=== PATIENT | female | born 1990 | race Caucasian/White ===

== ENCOUNTER 2017-03-22 18:18 | Inpatient (IN) | payer OTHER ==
[~2017-03-22] VITALS: Ht 162.6 cm; Wt 69.8 kg
--- NOTE | 2017-03-22 20:34 | NUR ---
DR HUNTER BEDSIDE IN ED BED T1 FOR MSE.
--- NOTE | 2017-03-22 20:54 | NUR ---
PT IN THE ED WITH COMPLAINT OF EPIGASTRIC PAIN AND VOMITING SINCE TUESDAY. PT RATES CURRENT PAIN 10/10. PT AXOX4 WITH EVEN AND UNLABORED BREATHING. SKIN WDI.
[2017-03-22 21:04] LABS: microscopic required? YES; urine erythrocyte TRACE (NEGATIVE)
[2017-03-22 21:05] LABS: BASOPHIL % 0.1 % (0-2); PLATELET COUNT 313 x10^3mcL (130-400)
[2017-03-22 21:06] LABS: RED CELL DISTRIBUTION WIDTH 15.2 % (11.5-14.5)
[2017-03-22 21:13] LABS: CALCIUM 8.8 mg/dL (8.5-10.1); CARBON DIOXIDE 26.3 mmol/L (21-32); CHLORIDE SERUM 101 mmol/L (98-107); CREATININE SERUM 0.8 mg/dL (0.6-1.0); GFR1 > 60 mL/min; GLUCOSE SERUM 95 mg/dL (74-106); POTASSIUM SERUM 3.4 mmol/L (3.5-5.1); SODIUM SERUM 138 mmol/L (136-145)
--- NOTE | 2017-03-22 21:13 | NUR ---
US AT BEDSIDE IN ED ROOM T1.
[2017-03-22 21:17] LABS: ALBUMIN 4.3 g/dL (3.4-5.0); ALKALINE PHOSPHATASE 84 U/L (46-116); ALT/SGPT 19 U/L (14-59); AST/SGOT 14 U/L (15-37); BILIRUBIN TOTAL 0.3 mg/dL (0.20-1.00); LIPASE 111 IU/L (73-393)
[2017-03-22 21:23] LABS: TOTAL PROTEIN, SERUM 8.6 g/dL (6.4-8.2)
--- NOTE | 2017-03-22 22:20 | NUR ---
PT MEDICATED WITH IM TORADOL.
--- NOTE | 2017-03-22 23:25 | NUR ---
REPORT CALLED TO RANULFO OLSEN FOR ONGOING CARE IN [facility].
--- NOTE | 2017-03-22 23:33 | NUR ---
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 AAOX4. NO SOB NOTED. NSR ON THE MONITOR. C/O 3/10 ACHING EPIGASTRIC PAIN, DENIES NAUSEA/VOMITING AT THIS TIME. LAST BM WAS ABOUT 3 DAYS AGO. SIDE RAILS UPX2. CALL LIGHT ON REACH. ENDORSED TO PRIMARY NURSE RAÚL FOR CONTINUITY OF CARE.
[2017-03-22 23:43] VITALS: BP 140/94
[2017-03-22 23:45] VITALS: Ht 162.6 cm; Wt 69.8 kg
[2017-03-23 01:49] LABS: IRON 15 ug/dL (50-170); TOTAL IRON BINDING CAPACITY 463 ug/dL (250-450)
[2017-03-23 01:53] LABS: FREE T4 1.2 ng/dL (0.76-1.46); FREE THYROXINE INDEX 3.5 ug/dL (1.4-4.5); RED BLOOD CELLS 4.75 M/mm3 (4.10-5.10); T4(THYROXINE) 10.6 ug/dL (4.7-13.3)
[2017-03-23 01:58] LABS: PHOSPHOROUS 3.8 mg/dL (2.5-4.9)
[2017-03-23 02:50] LABS: T3 TOTAL 1.51 ng/mL
[2017-03-23 04:31] LABS: AMPHETAMINE QUAL UR NONE DETECTED (NEG <=1000)
--- NOTE | 2017-03-23 04:51 | NUR ---
PT SLEPT WELL SINCE ADMISSION.DENIES ABDOMINAL PAIN.NO N/V NOTED.ALL NEEDS MET.WILL CONTINUE TO MONITOR.
[2017-03-23 06:30] LABS: BASOPHIL % 0.3 % (0-2); PLATELET COUNT 254 x10^3mcL (130-400)
[2017-03-23 06:42] VITALS: BP 114/68
[2017-03-23 07:00] LABS: RED CELL DISTRIBUTION WIDTH 14.7 % (11.5-14.5)
[2017-03-23 07:04] LABS: CALCIUM 7.9 mg/dL (8.5-10.1); CARBON DIOXIDE 26.2 mmol/L (21-32); CHLORIDE SERUM 105 mmol/L (98-107); CREATININE SERUM 0.7 mg/dL (0.6-1.0); GFR1 > 60 mL/min; GLUCOSE SERUM 83 mg/dL (74-106); HDL CHOLESTEROL 52 mg/dL (40-60); POTASSIUM SERUM 3.3 mmol/L (3.5-5.1); SODIUM SERUM 139 mmol/L (136-145); TRIGLYCERIDES 32 mg/dL (<150)
[2017-03-23 07:06] LABS: CHOLESTEROL 112 mg/dL (<200); CHOLESTEROL/HDL RATIO 2.2
--- NOTE | 2017-03-23 07:30 | NUR ---
RECEIVED PATIENT RESTING INBED COMFORTABLY, A/O X4, CLEAR SPEECH, NO NEURO DEFICITS NOTED. TELE # [address], DENIES CHEST PAIN. BREATHING EVEN UNLABBORED ON RA, DENIES SOB. ABD SOFT/ROUND, BS ACTIVE X4, DENIES N/V OR ABD PAIN. VOIDS FREELY WITH BRP. NPO STATUS MAINTAINED. SKIN IS WARM CDI WITH IV TO RH INTACT INFUSING NS AT 100 ML/HR FREE FROM REDNESS AND INFILTRATION. PATIENT CALM WITH CARE. INSTRUCTED TO CALL FOR ASSISTANCE IF NEEDED. CALL LIGHT WITHIN REACH, BED IN LOW POSITION. WILL MONITOR.
--- NOTE | 2017-03-23 08:15 | NUR ---
DR. BANERJEE AT BEDSIDE TO SPEAK WITH AND ASSESS PATIENT. PATIENT MADE AWARE SHE HAS GALLSTONES AND WILL REQUIRE SURGERY TO REMOVE GALLBLADDER, AGREED WITH PLAN OF CARE. CONSENT OBTAINED AND SIGNED FOR LAPAROSCOPIC CHOLECYSTECTOMY POSSIBLE OPEN. ALL QUESTIONS AND CONCERNS ADDRESSED. WILL MONITOR.
[2017-03-23 10:00] VITALS: BP 134/80
--- NOTE | 2017-03-23 10:15 | NUR ---
DR. CASTELLANOS (DO-RESIDENT) MADE AWARE OF K 3.3. NO NEW ORDERS RECEIVED. WILL MONITOR.
--- NOTE | 2017-03-23 11:45 | NUR ---
PATIENT TAKEN DOWN TO OR FOR PROCEDURE. SCREW MACHINE ADJUSTER AUTOMATIC AWARE.
--- NOTE | 2017-03-23 14:20 | NUR ---
RECEIVED PATIENT BACK FROM OR S/P LAP ESSIE WITH INCISION X4 TO ABD WITH DANILO COVERED WITH BANDAID. PATIENT A/O X4, DROWSY BUT ABLE TO MAKE NEEDS KNOWN AND FOLLOW COMMANDS. PATIENT ABLE TO TRANSFER SELF FROM GURNEY TO BED. TELE # 25 APPLIED. IVF RESUMED. VSS: BP 108/68, MAP 83, HR 61, RR 17, O2 SAT 100% ON RA, TEMP 98.2. PATIENT DENIES ANY PAIN OR NAUSEA AT THIS TIME. ALL NEEDS ATTENDED TO. COUNSELING SERVICES DIRECTOR MADE AWARE PATIENT IS BACK FROM OR. SAFETY PRECAUTIONS MAINTAINED. WILL MONITOR.
[2017-03-23 18:40] VITALS: BP 125/69
--- NOTE | 2017-03-23 18:46 | NUR ---
PATIENT SITTING UP IN BED NO DISTRESS NOTED, FAMILY AT BEDSIDE. PATIENT TOLERATED DINNER WELL, DENIES ANY N/V OR ABD PAIN. DENIES PASSING GAS, OR BURPING, NO BM YET. INCISION TO ABD X4 WITH BANDAID CDI NO ACTIVE BLEEDING NOTED. ENCOUARGED PATIENT TO GET UP OUT OF BED AND AMBULATE AND ENCOUARGED USE OF I.S THAT IS AT BEDSIDE. IV TO RH INTACT INFUSING IVF WELL. ALL NEEDS ATTENDED TO DURING SHIFT. SAFETY PRECAUTIONS IN PLACE. WILL MONITOR.
--- NOTE | 2017-03-23 19:34 | NUR ---
RECEIVED PATIENT IN BED AWAKE, ALERT AND ORIENTED, FAMILY MEMBERS AT BEDSIDE. DENIES POST OPERATIVE PAIN AT THIS TIME. ABDOMEN ROUND AND NON TENDER WITH HYPOACTIVE BS. INCISION X4 TO ABDOMEN WITH BANDAID, BLOOD TRACED NOTED IN SMALL AMOUNT. NO ACTIVE BLEEDING NOTED TO OPERATIVE SITE. TELE# 25 NSR ON MONITOR. SCD TO BLE IN PLACE. IV TO RH INTACT AND INFUSING WELL. WILL CONTINUE TO MONITOR. CALL LIGHT WITHIN REACH.
[2017-03-23 20:45] VITALS: BP 105/48
--- NOTE | 2017-03-23 20:50 | NUR ---
C/O HEADACHE MEDICATED WITH TYLENOL 650MG PO PRESCRIBED. WILL CONTINUE TO MONITOR.
--- NOTE | 2017-03-24 03:01 | NUR ---
SLEEPING THIS TIME BREATHING EASY AND NONLABOR. WILL CONTINUE TO MONITOR.
--- NOTE | 2017-03-24 05:23 | NUR ---
SLEPT FAIRLY C/O POST OP PAIN X1 THE ENTIRE SHIFT AND MEDICATED PRESCRIBED. ALL NEEDS ATTENDED.
[2017-03-24 06:00] VITALS: BP 104/59
[2017-03-24 06:15] LABS: BASOPHIL % 0.1 % (0-2); PLATELET COUNT 244 x10^3mcL (130-400)
[2017-03-24 06:28] LABS: CALCIUM 8.1 mg/dL (8.5-10.1); CARBON DIOXIDE 24.3 mmol/L (21-32); CHLORIDE SERUM 107 mmol/L (98-107); CREATININE SERUM 0.7 mg/dL (0.6-1.0); GFR1 > 60 mL/min; GLUCOSE SERUM 85 mg/dL (74-106); SODIUM SERUM 140 mmol/L (136-145)
[2017-03-24 06:30] LABS: RED CELL DISTRIBUTION WIDTH 14.7 % (11.5-14.5)
--- NOTE | 2017-03-24 07:30 | NUR ---
RECEIVED PATIENT RESTING IN BED COMFORTABLY, EASILY AROUSABLE TO VERBAL STIMULI, A/O X4, CLEAR SPEECH, NO NEURO DEFICITS NOTED. TELE # [address], DENIES CHEST PAIN. BREATHING EVEN UNLABBORED ON RA, DENIES SOB, NO DISTRESS NOTED. PATIENT IS S/P LAP ESSIE 03/23/17, WITH INCISION X4 TO ABD COVERED WITH BANDAID CDI. PATIENT DENIES ANY N/V OR ABD PAIN. PATIENT DENIES PASSING GAS OR HAVING A BM YET. IV TO RH INTACT INFUSING NS AT 100 ML/HR FREE FROM REDNESS AND INFILTRATION. PATIENT CALM WITH CARE. INSTRUCTED TO CALL FOR ASSISTANCE IF NEEDED. CALL LIGHT WITHIN REACH, BED IN LOW POSITION. WILL CONTINUE TO MONITOR AND MAINTAIN SAFETY.
--- NOTE | 2017-03-24 09:19 | NUR ---
ROUNDS MADE- DR. SALDAÑA, RESIDENT TEAM, CHARGE NURSE AND PRIMARY NURSE AT BEDSIDE. POC REVIEWED WITH PATIENT- PATIENT SITTING UP IN BED USING I.S, TOLERATED BREAKFAST WELL. PATIENT STABLE FOR DISCHARGE HOME TODAY AND WILL BE GIVEN A PRESCRIPTION FOR PAIN MEDICATION AND STOOL SOFTENER. ALL QUESTIONS AND CONCERNS ADDRESSED. WILL MONITOR.
[2017-03-24 10:18] VITALS: BP 113/63
--- NOTE | 2017-03-24 10:34 | NUR ---
PATIENT SEEN AMBULATING IN HALLWAY, GAIT SLOW AND STEADY. PATIENT STATES SHE IS PASSING GAS, BUT NO BM YET. PATIENT DENIES ANY PAIN, NO DISTRESS NOTED. WILL CONTINUE TO MONITOR.
[2017-03-24] MEDS ORDERED: APAP/HYDROCODON1 T13 PO (11:46)
[2017-03-24] MEDS ORDERED: COL100 PO (11:46)
[2017-03-24] MEDS ORDERED: PRI20 PO (11:47)
[2017-03-24 11:50] VITALS: BP 113/63
--- NOTE | 2017-03-24 12:20 | NUR ---
PATIENT STABLE FOR DISCHARGE TODAY PER MD ORDER. DISCHARGE INSTRUCTIONS, PRESCRIPTION, BELONGINGS LIST AND EDUCATION GIVEN TO PATIENT. PATIENT VERBALIZED UNDERSTANDING TO FOLLOW UP WITH PCP ON 03/29/[address] BANERJEE ON 04/01/17, ALL QUESTIONS AND CONCERNS ADDRESSED. INCISION X4 TO ABDOMEN BEKAH WITH DANILO, CDI NO REDNESS OR DRAINAGE NOTED. PATIENT STATED HER SISTER IS ON HER WAY TO TAKE PATIENT HOME. INFORMED PATIENT TO NOTIFY STAFF WHEN SISTER IS AT BEDSIDE. SAFETY PRECAUTIONS MAINTAINED. WILL MONITOR.
--- NOTE | 2017-03-24 13:09 | NUR ---
PATIENT IN STABLE CONDITION NO DISTRESS NOTED. FAMILY AT BEDSIDE. IV TO RH REMOVED CATH INTACT. ID BANDS REMOVED, TELE MONITOR REMOVED. PATIENT ASSISTED DOWN TO LOBBY VIA WHEELCHAIR ACCOMPANIED BY NURSE AID AND FAMILY. ALL PERSONAL BELONGINGS SENT HOME WITH PATIENT.
== END 2017-03-24 13:07 | disposition home or self-care (01) | DRG 263 ==
LOC: ED 18:18 → DU 23:10
PROVIDERS: Emergency Medicine; ADMIT Family Medicine
PROC: 0FT44ZZ Resection of Gallbladder, Percutaneous Endoscopic Approach (ICD-10-PCS; principal; 2017-03-22)
DX: K80.20 Calculus of gallbladder without cholecystitis without obstruction (principal); N17.0 Acute kidney failure with tubular necrosis; E87.6 Hypokalemia; I10 Essential (primary) hypertension; R31.9 Hematuria, unspecified; D50.9 Iron deficiency anemia, unspecified; K76.0 Fatty (change of) liver, not elsewhere classified; Z68.26 Body mass index [BMI] 26.0-26.9, adult
CPT/HCPCS: 83880; 84439; 94150; J0330; J0690; J1885; J2175; J2250; J2270; J2405; J2704; J2710; J2765; J3010; J3490; J7030; J7120; Q0092; Q0162

== ENCOUNTER 2018-06-16 22:53 | Inpatient (IN) | payer OTHER ==
[~2018-06-16] VITALS: Ht 160 cm; Wt 65.8 kg
[~2018-06-16 22:53] MED LIST: APAP/HYDROCODON1 T13 PO; COL100 PO; PRI20 PO
[2018-06-16 23:09] VITALS: Ht 160 cm; Wt 65.8 kg
[2018-06-17 01:37] LABS: CALCIUM 8.9 mg/dL (8.5-10.1); CARBON DIOXIDE 27.9 mmol/L (21-32); CHLORIDE SERUM 101 mmol/L (98-107); CREATININE SERUM 0.9 mg/dL (0.6-1.0); GFR1 > 60 mL/min; GLUCOSE SERUM 87 mg/dL (74-106); POTASSIUM SERUM 3.1 mmol/L (3.5-5.1); SODIUM SERUM 138 mmol/L (136-145)
[2018-06-17 01:39] LABS: AMPHETAMINE QUAL UR NONE DETECTED (See below)
[2018-06-17 01:40] LABS: BASOPHIL % 0.7 % (0-2); PLATELET COUNT 285 x10^3mcL (130-400)
[2018-06-17 01:42] LABS: ALKALINE PHOSPHATASE 79 U/L (46-116); ALT/SGPT 23 U/L (14-59); AST/SGOT 11 U/L (15-37); BILIRUBIN TOTAL 0.1 mg/dL (0.20-1.00); LIPASE 112 IU/L (73-393); TOTAL PROTEIN, SERUM 8.3 g/dL (6.4-8.2)
[2018-06-17 01:43] LABS: RED CELL DISTRIBUTION WIDTH 23.9 % (11.5-14.5)
[2018-06-17 01:49] LABS: rbc morphology (normal/abnorm) ABNORMAL (NORMAL)
[2018-06-17 01:50] LABS: ovalocyte/elliptocyte 1+
[2018-06-17] MEDS ORDERED: NATURAL IRON65 MG PO (04:45)
[2018-06-17 04:58] LABS: MAGNESIUM 2.1 mg/dL (1.8-2.4); PHOSPHOROUS 4.2 mg/dL (2.5-4.9)
[2018-06-17 05:00] LABS: CHOLESTEROL/HDL RATIO 2.2
[2018-06-17 05:04] LABS: FREE T4 1.03 ng/dL (0.76-1.46); FREE THYROXINE INDEX 2.9 ug/dL (1.4-4.5); T4(THYROXINE) 9.5 ug/dL (4.7-13.3)
[2018-06-17 05:06] LABS: T3 TOTAL 1.26 ng/mL
[2018-06-17 09:38] VITALS: BP 120/81
[2018-06-17 12:32] VITALS: BP 101/65
[2018-06-17 14:28] LABS: microscopic required? YES; urine erythrocyte TRACE (NEGATIVE)
[2018-06-17 16:33] VITALS: BP 119/74
[2018-06-17 20:43] VITALS: BP 124/78
[2018-06-18 05:47] VITALS: BP 101/65
[2018-06-18 06:36] LABS: CALCIUM 8.3 mg/dL (8.5-10.1); CARBON DIOXIDE 25.1 mmol/L (21-32); CHLORIDE SERUM 108 mmol/L (98-107); CREATININE SERUM 0.6 mg/dL (0.6-1.0); GFR1 > 60 mL/min; GLUCOSE SERUM 84 mg/dL (74-106); MAGNESIUM 1.9 mg/dL (1.8-2.4); PHOSPHOROUS 4.5 mg/dL (2.5-4.9); POTASSIUM SERUM 3.9 mmol/L (3.5-5.1); SODIUM SERUM 141 mmol/L (136-145)
[2018-06-18 06:57] LABS: BASOPHIL % 0.6 % (0-2); PLATELET COUNT 236 x10^3mcL (130-400)
[2018-06-18 07:45] LABS: RED CELL DISTRIBUTION WIDTH 21.9 % (11.5-14.5)
[2018-06-18 10:28] LABS: rbc morphology (normal/abnorm) ABNORMAL (NORMAL)
[2018-06-18 10:29] LABS: ovalocyte/elliptocyte 1+
[2018-06-18 12:33] VITALS: BP 127/80
[2018-06-18 16:55] VITALS: BP 107/67
[2018-06-18 20:33] VITALS: BP 112/66
[2018-06-19 03:35] LABS: BASOPHIL % 0.6 % (0-2); PLATELET COUNT 244 x10^3mcL (130-400)
[2018-06-19 03:47] LABS: rbc morphology (normal/abnorm) ABNORMAL (NORMAL)
[2018-06-19 03:48] LABS: ovalocyte/elliptocyte 1+
[2018-06-19 04:02] LABS: CALCIUM 8.3 mg/dL (8.5-10.1); CARBON DIOXIDE 27.1 mmol/L (21-32); CHLORIDE SERUM 107 mmol/L (98-107); CREATININE SERUM 0.7 mg/dL (0.6-1.0); GFR1 > 60 mL/min; GLUCOSE SERUM 93 mg/dL (74-106); MAGNESIUM 1.8 mg/dL (1.8-2.4); PHOSPHOROUS 4.3 mg/dL (2.5-4.9); POTASSIUM SERUM 3.9 mmol/L (3.5-5.1); SODIUM SERUM 141 mmol/L (136-145)
[2018-06-19 05:30] VITALS: BP 103/65
[2018-06-19 08:57] VITALS: BP 124/85
[2018-06-19 12:46] VITALS: BP 137/87
[2018-06-19 17:01] VITALS: BP 126/84
[2018-06-19 21:11] VITALS: BP 110/68
[2018-06-20 05:42] VITALS: BP 108/81
[2018-06-20 06:47] LABS: BASOPHIL % 0.4 % (0-2); PLATELET COUNT 247 x10^3mcL (130-400)
[2018-06-20 06:58] LABS: CALCIUM 8.6 mg/dL (8.5-10.1); CARBON DIOXIDE 24.5 mmol/L (21-32); CHLORIDE SERUM 104 mmol/L (98-107); CREATININE SERUM 0.7 mg/dL (0.6-1.0); GFR1 > 60 mL/min; GLUCOSE SERUM 73 mg/dL (74-106); MAGNESIUM 1.8 mg/dL (1.8-2.4); PHOSPHOROUS 4.4 mg/dL (2.5-4.9); POTASSIUM SERUM 3.6 mmol/L (3.5-5.1); SODIUM SERUM 138 mmol/L (136-145)
[2018-06-20 07:01] LABS: TOTAL IRON BINDING CAPACITY 302 ug/dL (250-450)
[2018-06-20 07:04] LABS: IRON 26 ug/dL (50-170)
[2018-06-20 09:17] VITALS: BP 110/64; BP 117/77
[2018-06-20] MEDS ORDERED: METOPROLOL SUCC25 M2 PO (11:11)
[2018-06-20] MEDS ORDERED: NOR5 PO (11:12)
[2018-06-20] MEDS ORDERED: ECO81 PO (11:12)
[2018-06-20 12:33] VITALS: BP 110/73
[2018-06-20 14:00] VITALS: BP 110/73
[2018-06-20 16:51] VITALS: BP 112/58
[2018-06-20 19:18] LABS: RED BLOOD CELLS 4.55 M/mm3 (4.10-5.10)
== END 2018-06-20 18:12 | disposition home or self-care (01) | DRG 198 ==
LOC: ED 22:53 → DU 06-17 03:28
PROVIDERS: Emergency Medicine; ADMIT Internal Medicine
DX: I24.9 Acute ischemic heart disease, unspecified (principal); D64.9 Anemia, unspecified; D72.829 Elevated white blood cell count, unspecified; E87.6 Hypokalemia; G43.909 Migraine, unspecified, not intractable, without status migrainosus; Z68.25 Body mass index [BMI] 25.0-25.9, adult
CPT/HCPCS: 82652; 83880; 84439; 85378; A9500; J1644; J1885; J2785; J7030; Q9967